=== PATIENT | female | born 1965 | race Caucasian/White ===

== ENCOUNTER → 2019-12-19 | Outpatient (CLI) | payer OTHER ==
--- NOTE | 2019-12-19 16:36 | RAD ---
CT Abdomen and Pelvis without contrast History: Diverticulitis Technique: Noncontrast CT imaging was performed of the abdomen and pelvis. Multiplanar images are reviewed. Exposure: One or more of the following individualized dose reduction techniques were utilized for this examination: 1. Automated exposure control 2. Adjustment of the mA and/or kV according to patient size 3. Use of iterative reconstruction technique. Comparison: None Findings: No urolithiasis or hydronephrosis is identified. Accurate evaluation of abdominal visceral organs is limited without intravenous contrast. There is no obvious abnormality of the spleen, liver, or pancreas. Gallbladder is present, some mild calcification along the inferior wall distally. There is no adrenal nodularity. Accurate evaluation of bowel is limited without oral contrast. There is no significant free air, free fluid, bowel dilatation. Normal caliber appendix is visualized without adjacent inflammatory change. There is moderate diverticulosis of the descending and sigmoid colon, no significant adjacent localized inflammatory type change. There is variable mild lumbar degenerative disc disease. There is mild lumbar dextroscoliosis. There is degenerative change of the pubic symphysis. Impression: 1. There is colonic diverticulosis. There is no significant localized inflammatory change about the bowel although there could be a degree of long segment wall thickening of the descending colon more commonly associated with colitis given long segment of involvement. Accurate evaluation for wall thickening is limited without oral contrast. There is no CT evidence of acute appendicitis. 2. There is mild calcification along the inferior gallbladder wall, uncertain if cholelithiasis or early calcification of gallbladder wall. Gallbladder wall calcification is associated with increased risk of gallbladder malignancy. Electronically signed by: Hipolito Caraballo MD (12/19/2019 4:34 PM) [facility]
== END ==
LOC: CT 15:29 → EDBD 15:29
PROVIDERS: ATTEND Nurse Practitioner Family
DX: K57.30 Diverticulosis of large intestine without perforation or abscess without bleeding (principal)
CPT/HCPCS: 74176